=== PATIENT | female | born 1965 | race Caucasian/White ===

== ENCOUNTER 2016-06-29 08:08 | Day surgery (SDC) | payer OTHER ==
[2016-06-29] MEDS ORDERED: PROPOFOL 500 MG/50 ML EMU IV ONE (08:17)
[2016-06-29 09:57] VITALS: BP 113/89; PULSE 71; RESP 20; TEMP 96.9; O2SAT 99
== END 2016-06-29 10:10 | disposition home or self-care (01) | DRG 951 ==
LOC: SURG 08:08
PROVIDERS: ATTEND Surgery
DX: Z12.11 Encounter for screening for malignant neoplasm of colon (principal)
CPT/HCPCS: J2704